=== PATIENT | female | born 1955 | race Caucasian/White ===

== ENCOUNTER → 2016-11-18 | Outpatient (CLI) | payer BC ==
[2016-11-18 09:53] LABS: CHLORIDE,CL 100 mmol/L (98-110); SODIUM,NA 141 mmol/L (136-146)
== END ==
LOC: MW.CHFP 09:10
PROVIDERS: ATTEND Nurse Practitioner Family
DX: E11.9 Type 2 diabetes mellitus without complications (principal)
CPT/HCPCS: 36415; 80053; 80061; 83036

== ENCOUNTER 2019-02-09 08:50 | Day surgery (SDC) | payer MEDICARE, OTHER ==
[~2019-02-09 08:50] MED LIST: Lactated Ringers 1,000 ML IV SCH
[2019-02-09] MEDS ORDERED: fentaNYL 100 MCG/2 ML SDV ONE (10:45)
[2019-02-09] MEDS ORDERED: Lidocaine 2% 5 ML SDV ONE (10:45)
--- NOTE | 2019-02-09 10:45 | PCM.PREANE ---
Preanesthetic Assessment - Anesthesia/Transfusion/Family Hx Anesthesia History: Prior Anesthesia Without Reaction Family History of Anesthesia Reaction: No Transfusion History: No Prior Transfusion(s) Intubation History: Unknown - Review of Systems General: No Symptoms Pulmonary: No Symptoms Cardiovascular: No Symptoms, Orthopnea Gastrointestinal: Other (screening colonoscopy) Neurological: No Symptoms Other: Reports: None - Physical Assessment O2 Sat by Pulse Oximetry: 94 Respiratory Rate: 16 Vital Signs: Last Vital Signs Temp 36.3 C 02/09/19 09:10 Pulse 81 02/09/19 09:10 Resp 16 02/09/19 09:10 BP 133/61 02/09/19 09:10 Pulse Ox 94 L 02/09/19 09:10 Height: 1.6 m Weight: 93.44 kg ASA Class: 3 Mental Status: Alert & Oriented x3 Airway Class: Mallampati = 2 Dentition: Reports: Normal Dentition Thyro-Mental Finger Breadths: 3 Mouth Opening Finger Breadths: 3 ROM/Head Extension: Full Lungs: Clear to Auscultation, Normal Respiratory Effort Cardiovascular: Regular Rate, Regular Rhythm - Allergies Allergies/Adverse Reactions: Allergies Allergy/AdvReac Type Severity Reaction Status Date / Time codeine Allergy Hallucinati Verified 02/09/19 09:32 ons dulaglutide [From Trulicity] Allergy Nausea and Verified 02/09/19 09:32 Vomiting - Blood Blood Available: No - Anesthesia Plan Pre-Op Medication Ordered: None - Acknowledgements Anesthesia Type Planned: MAC Pt an Appropriate Candidate for the Planned Anesthesia: Yes Alternatives and Risks of Anesthesia Discussed w Pt/Guardian: Yes Pt/Guardian Understands and Agrees with Anesthesia Plan: Yes PreAnesthesia Questionnaire HEENT History: Reports: Other (See Below) Other HEENT History: wears glasses, has partial removable lower denture Cardiovascular History: Reports: CAD (positive stress test but coronary calcium screening showed only minimal CAD), Hypertension Gastrointestinal History: Reports: GERD, Hiatal Hernia [employer] ASSISTANT History: Reports: Musculoskeletal History: Reports: Osteoarthritis Neurological History: Reports: Other (See Below) Other Neuro History: hx of motion sickness Psychiatric History: Reports: Anxiety, Depression Endocrine/Metabolic History: Reports: Diabetes, Type II, IDDM, Obesity/BMI 30+, Osteopenia - Past Surgical History Head Surgeries/Procedures: Reports: None HEENT Surgical History: Reports: Eye Surgery, Tonsillectomy Other HEENT Surgeries/Procedures: eye surgery for injury Female Surgical History: Reports: Breast Biopsy, Section, D&C Musculoskeletal Surgical History: Reports: Arthroscopic Knee, Knee Replacement Other Musculoskeletal Surgeries/Procedures:: bilateral TKA - SUBSTANCE USE Smoking Status *Q: Current Every Day Smoker (less than 10 cigarettes per day) Tobacco Use Within Last Twelve Months: Cigarettes Recreational Drug Use History: No - HOME MEDS Home Medications: Home Meds Aspirin [Adult Low Dose Aspirin EC] 81 mg PO DAILY 02/07/19 [History] Calcium Carbonate/Vitamin D3 [Calcium 600-Vit D3 500 Softgel] 1 cap PO BID 02/07 [History] Empagliflozin [Jardiance] 10 mg PO DAILY 02/07/19 [History] Glimepiride 4 mg PO BIDMEALS 02/07/19 [History] Insulin Degludec [Tresiba] 22 unit PO BEDTIME 02/07/19 [History] Lisinopril 10 mg PO DAILY 02/07/19 [History] Metoprolol Succinate 25 mg PO BEDTIME 02/07/19 [History] Omeprazole Magnesium [Prilosec Otc] 20 mg PO DAILY 02/07/19 [History] Sertraline HCl 50 mg PO DAILY 02/07/19 [History] atorvaSTATin Calcium [Atorvastatin Calcium] 40 mg PO BEDTIME 02/07/19 [History] Ascorbic Acid [Vitamin C] 1,000 mg PO DAILY 02/09/19 [History] Cider Vinegar [Apple Cider Vinegar] 500 mg PO DAILY 02/09/19 [History] - CURRENT (IN HOUSE) MEDS Current Meds: Current Medications Lactated Ringer's (Ringers, Lactated) 1,000 mls @ 125 mls/hr IV ASDIRECTED [facility] Last Admin: 02/09/19 09:42 Dose: 125 mls/hr
[2019-02-09] MEDS ORDERED: Propofol 200 MG/20 ML SDV ONE ×2 (11:09)
--- NOTE | 2019-02-09 11:33 | PCM.OPNOTE ---
- General Post-Op/Procedure Note Date of Surgery/Procedure: 02/09/19 Operative Procedure(s): Screening colonoscopy Findings: Descending, sigmoid and rectal polyp Pre Op Diagnosis: Screening colonoscopy Post-Op Diagnosis: Descending, sigmoid, rectal polyp Anesthesia Technique: MAC Primary Surgeon: Olimpia Eckert Condition: Good
--- NOTE | 2019-02-09 11:58 | OR ---
SURGEON: OLIMPIA ECKERT MD DATE OF PROCEDURE: 02/09/2019 PREOPERATIVE DIAGNOSIS: Screening colonoscopy. POSTOPERATIVE DIAGNOSES: 1. Descending colon polyp. 2. Sigmoid colon polyp. 3. Rectal polyps. PROCEDURE PERFORMED: Screening colonoscopy with biopsy. PRIMARY SURGEON: Dr. Olimpia Eckert. ANESTHESIA: MAC. INSTRUMENT USED: Olympus colonoscope. EXTENT OF EXAM: To the cecum. PREPARATION: Good. LIMITATIONS: None. INDICATION FOR EXAMINATION: The patient is a 63-year-old female who presents for a screening colonoscopy. I explained the procedure, expected perioperative course, and risks including bleeding, infection, or damage to surrounding structures including perforation. The patient verbalized understanding and wishes to proceed. PROCEDURE IN DETAIL: The patient is brought to the endoscopy suite and placed in a left lateral decubitus position. A time-out was completed verifying the patient's name, age, date of , allergies, and procedure to be performed. Monitored anesthesia care was induced and continuous oxygen was provided via nasal cannula throughout the procedure. After adequate sedation was achieved, a digital rectal exam was performed. This exam was within normal limits. A well-lubricated colonoscope was inserted in the rectum and advanced under direct visualization to the level of the cecum. The cecum was then identified by both visual and anatomic landmarks. A photograph was taken of the cecal cap as well as with the scope retroflexed within the cecum. The scope was then fully withdrawn while examining the color, texture, anatomy, and integrity of the mucosa from the cecum to the anal canal. The patient had small sessile polyps in the distal half of the colon. There was one in the descending colon, one in the sigmoid colon, and one in the rectum. These were all removed in piecemeal fashion using the cold biopsy forceps. The scope was then brought into the rectum and retroflexed to allow visualization of the anal canal opening. This appeared normal and a photograph was taken. The scope was then straightened out and fully withdrawn. The cecum to anus time was 13 minutes. The patient tolerated the procedure well and transferred to the PACU in stable condition. ENDOSCOPIC DIAGNOSES: 1. Descending colon polyp. 2. Sigmoid colon polyp. 3. Rectal polyps. RECOMMENDATIONS: Follow up in clinic in 2 weeks. HARMONY PERDOMO /[id number]
--- NOTE | 2019-02-09 12:11 | PCM48HPAN ---
Post Anesthesia Note - EVALUATION WITHIN 48HRS OF ANESTHETIC Vital Signs in Normal Range: Yes Patient Participated in Evaluation: Yes Respiratory Function Stable: Yes Airway Patent: Yes Cardiovascular Function Stable: Yes Hydration Status Stable: Yes Pain Control Satisfactory: Yes Nausea and Vomiting Control Satisfactory: Yes Mental Status Recovered: Yes Resp Rate: 15 - COMMENTS/OBSERVATIONS Free Text/Narrative:: no anesthesia problems
== END 2019-02-09 12:35 | disposition home or self-care (01) ==
LOC: MW.SDS 08:50
PROVIDERS: ATTEND Surgery
DX: Z12.11 Encounter for screening for malignant neoplasm of colon (principal); D12.5 Benign neoplasm of sigmoid colon; K63.5 Polyp of colon; K62.1 Rectal polyp; E11.9 Type 2 diabetes mellitus without complications; K21.9 Gastro-esophageal reflux disease without esophagitis; I25.10 Atherosclerotic heart disease of native coronary artery without angina pectoris; I10 Essential (primary) hypertension; E78.00 Pure hypercholesterolemia, unspecified; F17.210 Nicotine dependence, cigarettes, uncomplicated; M85.80 Other specified disorders of bone density and structure, unspecified site; E66.9 Obesity, unspecified; Z68.36 Body mass index [BMI] 36.0-36.9, adult; Z88.8 Allergy status to other drugs, medicaments and biological substances; Z79.82 Long term (current) use of aspirin; Z79.4 Long term (current) use of insulin; Z79.899 Other long term (current) drug therapy
CPT/HCPCS: 45380; J2001; J2704; J3010; J7120

== ENCOUNTER 2024-03-30 08:45 | Day surgery (SDC) | payer MEDICARE, OTHER ==
[~2024-03-30 08:45] MED LIST changes: -Lactated Ringers 1,000 ML IV SCH; +Sodium Chloride 0.9% 10 ML Syringe FLUSH PRN; +Sodium Chloride 0.9% 2.5 ML Syringe FLUSH PRN; +Sodium Chloride 0.9% 20 ML SDV IV PRN
[2024-03-30] MEDS: Lactated Ringers 1,000 ML IV SCH (09:35)
[2024-03-30] MEDS: 50% Dextrose in Water 50 ML Syringe IVPUSH ONE (10:53)
[2024-03-30] MEDS ORDERED: propofoL 50 ML ONE (11:28)
[2024-03-30] MEDS ORDERED: fentaNYL 100 MCG/2 ML SDV ONE (11:36)
== END 2024-03-30 12:55 | disposition home or self-care (01) ==
LOC: MW.SDS 08:45
PROVIDERS: ATTEND Surgery
DX: Z12.11 Encounter for screening for malignant neoplasm of colon (principal); D12.3 Benign neoplasm of transverse colon; K57.30 Diverticulosis of large intestine without perforation or abscess without bleeding; Z86.010 Personal history of colon polyps; I25.10 Atherosclerotic heart disease of native coronary artery without angina pectoris; E11.9 Type 2 diabetes mellitus without complications; I10 Essential (primary) hypertension; F41.9 Anxiety disorder, unspecified; F32.A Depression, unspecified; E78.00 Pure hypercholesterolemia, unspecified; F17.210 Nicotine dependence, cigarettes, uncomplicated; Z79.4 Long term (current) use of insulin; Z79.85 Long-term (current) use of injectable non-insulin antidiabetic drugs; Z79.899 Other long term (current) drug therapy
CPT/HCPCS: 45380; 82947; 88305; J2704; J3010; J7120; 00811; J3490